=== PATIENT | male | born 1950 | race Caucasian/White ===

== ENCOUNTER 2018-01-15 10:21 | Outpatient (CLI) | payer MEDICARE ==
--- NOTE | 2018-01-15 11:45 | RAD ---
FRONTAL VIEW ABDOMEN KUB 2 VIEWS PROVIDED: Date: 01/15/18 INDICATION: Calculus of kidney, cystic kidney disease. FINDINGS: Stable punctate density is seen overlying the left lateral abdomen. There are punctate densities over lying the mid right renal collecting system. No suspicious calcification is seen overlying the pelvis . There are metallic clips at the left proximal thigh. Osseous degenerative change present. There is a round density, 2.5 cm in diameter, on the basis of radiographic views just lateral to the right L3 transverse process. This could relate to overlying bowel content, and does not demonstrate a typical appearance for urinary tract calculus. IMPRESSION: 1. Stable laterally located punctate calcification of the left abdomen. 2. Punctate densities overlying the mid right renal collecting system which may relate to urolithias is. POS: BLAINE
== END 2018-01-15 10:22 | disposition home or self-care (01) ==
LOC: RAD 10:21
PROVIDERS: ATTEND Urology
DX: N20.0 Calculus of kidney (principal); R93.5 Abnormal findings on diagnostic imaging of other abdominal regions, including retroperitoneum
CPT/HCPCS: 74018

== ENCOUNTER 2018-09-18 10:02 | Outpatient (CLI) | payer MEDICARE ==
--- NOTE | 2018-09-18 12:29 | RAD ---
KUB: INDICATIONS: History of renal calculus. COMPARISON: 01/15/2018 FINDINGS: There is a 4 mm punctate calcification overlying the expected region of the right mid kidney, likely present on prior examination. Overlying bowel gas slightly limits evaluation of the left renal shado w. No suspicious calcification is seen along the expected course of the renal collecting system. IMPRESSION: Stable right nephrolithiasis. No suspicious calcification along the course of the renal collecting s ystem. There are mild scattered vascular calcifications. POS: MADHU
== END 2018-09-18 10:03 | disposition home or self-care (01) ==
LOC: RAD 10:02
PROVIDERS: ATTEND Urology
DX: N20.0 Calculus of kidney (principal); I70.90 Unspecified atherosclerosis
CPT/HCPCS: 36415; 74018; 80048; 81001; 83036; 87086

== ENCOUNTER 2018-10-08 00:04 | Outpatient (CLI) | payer MEDICARE, OTHER ==
[2018-10-08 14:08] LABS: Hemoglobin 14.5 g/dL (14.0-18.0); Mean Corpuscular Hemoglobin 30.9 pg (27.0-31.0); Mean Corpuscular Volume 93.8 fL (78.0-98.0); Mean Platelet Volume 6.6 fL (7.4-10.4); Platelet Count 225 thou/uL (130-400); RBC Distribution Width 12.5 % (11.5-14.5); Red Blood Cell (RBC) Count 4.69 mill/uL (4.70-6.10); White Blood Cell (WBC) Count 6.9 thou/uL (4.8-10.8)
[2018-10-08 14:12] LABS: Bilirubin Small (Negative); Blood, Urine Negative (Negative); Clarity CLEAR (Clear); Glucose, Urine (Dipstick) 250 mg/dL (Negative); Leukocyte Trace (Negative); Nitrite Negative (Negative); Protein, Urine (Dipstick) Trace mg/dL (Neg-Trace); Urobilinogen 0.2 mg/dL (0.2-1.0); pH, Urine 5.5 (5.0-9.0)
[2018-10-08 14:13] LABS: Bacteria/HPF None Seen HPF (None Seen); Pathc Cast-AUWi Flag 0.95 (0-2.49); Squamous Epithelial 0-3 HPF (0-3)
[2018-10-08 14:16] LABS: INR-International Normal Ratio 1.1; PTT 25.8 SEC (22.9-36.1)
[2018-10-08 14:21] LABS: Anion Gap 14 mmol/L (10-20); BUN (Urea Nitrogen) 18 mg/dL (8.4-25.7); Calc. Creatinine Clearance 0 mL/min (70-130); Calcium 9.6 mg/dL (7.8-10.44); Carbon Dioxide 27 mmol/L (23-31); Chloride 106 mmol/L (98-107); Estimated GFR-MDRD Greater than 90; Glucose 134 mg/dL (80-115); Potassium 3.9 mmol/L (3.5-5.1); Sodium 143 mmol/L (136-145)
[2018-10-08 14:44] LABS: RBC/HPF 0-3 HPF (0-3)
[2018-10-08 14:45] LABS: Crystals/HPF 1+ CA OXALATE HPF (Negative); Hyaline Casts/LPF 0-3 HYALINE CAST LPF (0-3 Hyaline)
--- NOTE | 2018-10-08 17:10 | EKG ---
Test Reason : Blood Pressure : / mmHG Vent. Rate : 084 BPM Atrial Rate : 084 BPM P-R Int : 204 ms QRS Dur : 082 ms QT Int : 360 ms P-R-T Axes : 032 060 085 degrees QTc Int : 425 ms Normal sinus rhythm Cannot rule out Anterior infarct , age undetermined Abnormal ECG When compared with ECG of 18-DEC-2016 10:48, No significant change was found Confirmed by Luis LUNA ([id number]) on 10/08/2018 5:10:01 PM Referred By: DESI Confirmed By:Luis LUNA
== END 2018-10-08 00:05 | disposition home or self-care (01) ==
LOC: LABBT 00:04
PROVIDERS: ATTEND Urology
DX: Z01.818 Encounter for other preprocedural examination (principal); Z12.5 Encounter for screening for malignant neoplasm of prostate; N40.1 Benign prostatic hyperplasia with lower urinary tract symptoms; N39.0 Urinary tract infection, site not specified; R35.0 Frequency of micturition; N20.0 Calculus of kidney; N39.41 Urge incontinence; E11.9 Type 2 diabetes mellitus without complications; R39.15 Urgency of urination; R31.29 Other microscopic hematuria; R81 Glycosuria; Q61.9 Cystic kidney disease, unspecified
CPT/HCPCS: 80048; 81001; 85027; 85610; 85730; 87086; 93005; 93010

== ENCOUNTER 2018-10-22 05:26 | Day surgery (SDC) | payer MEDICARE, OTHER ==
[2018-10-08 13:17] VITALS: BMI 47.9
[2018-10-22] MEDS ORDERED: Iothalamate Meglumine 60% 50 ML VIAL FS ONE (06:45)
[2018-10-22] MEDS ORDERED: Fentanyl 100 MCG/2 ML VIAL ONE ×2 (06:53→08:58)
[2018-10-22] MEDS ORDERED: cefTRIAXone\\ROCEPHIN 2 GM VIAL ONE (06:54)
[2018-10-22] MEDS ORDERED: Sodium Chloride 0.9% 100 ML ONE (06:54)
[2018-10-22] MEDS ORDERED: Hyoscyamine Sulfate SL 0.125 mg Tablet ONE ×2 (09:03→09:04)
[2018-10-22] MEDS ORDERED: Phenazopyridine HCl 97.5 MG TABLET ONE (10:02)
--- NOTE | 2018-10-22 14:49 | OP ---
DATE OF PROCEDURE: 10/22/2018 PREOPERATIVE DIAGNOSES: 1. A 68-year-old male with history of BPH. 2. History of recurrent urinary tract infection. 3. History of nonspecific left periureteral bladder lesion, 5 mm, suspicion low. POSTOPERATIVE DIAGNOSES: 1. A 68-year-old male with history of BPH. 2. History of recurrent urinary tract infection. 3. History of nonspecific left periureteral bladder lesion, 5 mm, suspicion low. PROCEDURES PERFORMED: Cystoscopy, bladder biopsy, fulguration of biopsy site, and UroLift prosthetic urethral lift implant x6. ANESTHESIA: General. COMPLICATIONS: None apparent. DISPOSITION: To recovery room in stable condition. SPECIMEN: Left bladder lesion, periureteral, nonspecific, suspicion low. INDICATIONS FOR PROCEDURE AND HISTORY: Mr. Correa is a 68-year-old male with history of BPH, with obstructive urinary symptoms on Flomax, recurrent UTI. He desired to proceed with BPH surgery. We discussed various treatment options and desired to proceed with minimally invasive approach of UroLift. Risks and complications of the procedure were reviewed with him in detail including, but not limited to, bleeding, pain, infection, injury to adjacent organs, possible migration, encrustation of implant, chronic pain, stricture, clot retention. All questions were answered to his satisfaction and desired to proceed. DESCRIPTION OF PROCEDURE: After an informed consent was signed, the patient was taken to the operating room and placed in a dorsal lithotomy position with the genital area prepped and draped in the usual surgical sterile fashion. Bilateral [place] hose, SCDs and broad-spectrum antibiotics were provided. A 21-Prydeinig cystoscope was utilized for cystoscopy, which demonstrated normal anterior urethra. Prostatic urethra again demonstrated bilobar hyperplasia, obstructing in nature. Bladder was entered with the UOs identified approximately 5-6 mm away from the bladder neck with no evidence of intravesical median lobe. There was a left periureteral lesion about 5 mm, appeared to have some calcific density adherent. It is not suspicious for cancer. Cytology negative. I did biopsy with an endoscopic biopsy intact and cauterized the bed. The UOs were kept out of harm's way. At this time, we then placed a 20-Prydeinig cystoscope with an obturator bridge with UroLift delivery device. The first treatment site was in the patient's left side approximately 1.5-2 cm distal to the bladder neck. The tip of the delivery device was then angled laterally approximately 20 degrees in this position to compress the lateral lobe by deploying the needle containing the implant to the prostate. The needle was retracted along the end of the implant to be delivered to the capsular surface of the prostate. The implant was then tensioned to ensure capsular seeding and removal of slack monofilament. The device was then angled back towards the midline and slowly advanced proximally until cystoscopic verification of monofilament being centered in the delivery bay. The urethra in piece was then affixed to the monofilament, thereby tailoring the size of the implant. Excess of filament was then severed. The delivery device was then readvanced into the bladder. This was repeated on the bilateral obstructing lobes with a total of 6 implants. At the end of the procedure, visualization from the verumontanum demonstrated resolution of obstructing lateral lobes. An 18-Prydeinig 2-way Dove catheter was inserted per urethra without difficulty. 10 mL insufflated and attached to leg bag. The patient will follow up with me tomorrow for a voiding trial. He is discharged with Omnicef for course of 7 days, Colace p.r.n. He is advised to hold his aspirin and ibuprofen products. Job ID: [id number] [facility]
[2018-10-22] MEDS ORDERED: Lidocaine 1% PF 5 ML VIAL ONE (15:48)
[2018-10-22] MEDS ORDERED: Rocuronium Bromide 10 MG/ML (10ML VIAL) ONE (15:48)
[2018-10-22] MEDS ORDERED: Glycopyrrolate 0.2 MG/ML 5 ML SYRINGE ONE (15:48)
[2018-10-22] MEDS ORDERED: Succinylcholine Chloride 20 MG/ML 10 ml SYRINGE FS ONE (15:48)
[2018-10-22] MEDS ORDERED: PROPOFOL 200 MG/20 ML VIAL ONE (15:48)
== END 2018-10-22 13:30 | disposition home or self-care (01) ==
LOC: SDC 05:26
PROVIDERS: ATTEND Urology
PROC: 0T7D8DZ Dilation of Urethra with Intraluminal Device, Via Natural or Artificial Opening Endoscopic (ICD-10-PCS; principal; 2018-10-22)
PROC: 0TBB8ZX Excision of Bladder, Via Natural or Artificial Opening Endoscopic, Diagnostic (ICD-10-PCS; 2018-10-22)
DX: N40.1 Benign prostatic hyperplasia with lower urinary tract symptoms (principal); N13.8 Other obstructive and reflux uropathy; N39.41 Urge incontinence; N30.80 Other cystitis without hematuria; E11.9 Type 2 diabetes mellitus without complications; E78.5 Hyperlipidemia, unspecified; K21.9 Gastro-esophageal reflux disease without esophagitis; F10.11 Alcohol abuse, in remission; Z87.440 Personal history of urinary (tract) infections; Z86.73 Personal history of transient ischemic attack (TIA), and cerebral infarction without residual deficits; Z79.82 Long term (current) use of aspirin; Z79.84 Long term (current) use of oral hypoglycemic drugs; Z79.899 Other long term (current) drug therapy; Z88.1 Allergy status to other antibiotic agents; Z88.8 Allergy status to other drugs, medicaments and biological substances; Z95.5 Presence of coronary angioplasty implant and graft; Z98.890 Other specified postprocedural states
CPT/HCPCS: 52204; 88305; C1758; C1769; C9740; J0696; J2001; J2704; J3010; J3490; Q9961

== ENCOUNTER 2020-01-12 06:41 | Outpatient (CLI) | payer MEDICARE ==
--- NOTE | 2020-01-12 08:12 | ULT ---
ULTRASOUND RETROPERITONEUM COMPLETE: (RENAL) DATE: 01/12/2020. HISTORY: A 69-year-old male with cystic kidney disease, unspecified, 261.9, and the calculus of kidney N20.0 . FINDINGS: The right kidney measures 12 x 6.5 x 7 cm. The left kidney measures 14 x 6 x 9.5 cm. Both kidneys h ave normal cortical thickness and normal cortical echogenicity. There is no hydronephrosis. Cursory images of the urinary bladder demonstrate no gross abnormality. No moderate-sized or large solid or cystic renal lesion is identified. Bilateral ureteral jets are demonstrated in the bladder. Prevoi d urinary bladder volume is 185 mL. IMPRESSION: Normal. [][id number] POS: BLAINE
--- NOTE | 2020-01-12 08:19 | RAD ---
Exam: Abdomen one view COMPARISON: 09/18/2018 HISTORY: Cystic kidney disease. Renal calculi LUNGS: Brachytherapy seeds are noted in the pelvis. No osseous abnormality Nonspecific bowel gas pattern Small calcification in the left upper quadrant, unchanged. Splenic granuloma is favored given the loc ation. No definite calculi projecting over either renal silhouette or along the expected course of either ureter IMPRESSION: As above
== END 2020-01-12 06:42 | disposition home or self-care (01) ==
LOC: BICULT 06:41
PROVIDERS: ATTEND Urology
DX: N20.0 Calculus of kidney (principal); Q61.9 Cystic kidney disease, unspecified
CPT/HCPCS: 74018; 76770

== ENCOUNTER 2020-08-22 09:15 | Outpatient (CLI) | payer MEDICARE, OTHER ==
--- NOTE | 2020-08-22 09:51 | CT ---
CT Stone Protocol 08/22/2020 9:20 AM HISTORY: Right flank pain and tightness. History of renal stones COMPARISON: 06/02/2015 Technique: Multiple contiguous axial CT images are obtained through the abdomen and pelvis without IV contrast. Coronal reformats are provided. FINDINGS: This examination is limited for the evaluation of solid organs and vascular structures due to the lac k of intravenous contrast. Lower Chest: Linear scarring and/or atelectasis is present at the posterior right lung base. Vascular calcifications are seen in the limited visualized coronary arteries Liver: There is a large 8.2 cm hypodense cystic lesion in the dome of the liver also seen on prior ex am. This cystic lesion previously measured 6 cm and now measures 8.2 cm and does demonstrate fluid attenuation likely representing interval enlargement of a hepatic cyst. A smaller 2 cm hypodense lesi on is seen in the medial aspect right hepatic lobe unchanged from prior study and also statistically likely representing a cyst. Gallbladder: Not visualized likely due to prior cholecystectomy. Pancreas: Grossly normal nonenhanced CT appearance. Spleen: Grossly normal nonenhanced CT appearance. Adrenals: Grossly normal nonenhanced CT appearance. Kidneys and ureters: Multiple nonobstructing bilateral renal calculi are visualized. Largest calculus midportion left kidney measures 6 mm with largest calculus midportion right kidney measuring 5 mm. No ureteral calculus is seen, and there is no hydronephrosis. Small subcentimeter hypodense lesion is seen in the inferior pole right kidney also seen on prior exam and likely represents a cyst. Urinary bladder: Incompletely distended. Reproductive Organs: Multiple prostate calcifications visualized. Lymph Nodes: No enlarged lymph nodes. Bowel: Evidence of colonic diverticulosis. Small hiatal hernia is present. Appendix: The appendix is normal in caliber. Peritoneum: No free fluid, free air, or fluid collection. Retroperitoneum: within normal limits. Vessels: Vascular calcifications in the abdominal aorta and iliac arteries. Abdominal Wall: within normal limits. Bones: Degenerative changes present in the spine. There is been progression in degree of degenerative changes at the L4-5 level with vacuum phenomenon and endplate degenerative changes No suspicious lytic or sclerotic osseous lesions are identified. IMPRESSION: 1. Nonobstructing bilateral renal calculi with interval increase in number of renal calculi compared to prior exam. 2. No ureteral calculus is seen, and there is no hydronephrosis. 3. Hepatic cysts with enlargement of the hepatic dome cyst. 4. Hypodense lesion inferior pole right kidney difficult to further characterize but also present on prior exam and statistically likely represents a cyst. 5. Colonic diverticulosis. 6. There is a small hiatal hernia.
== END 2020-08-22 09:16 | disposition home or self-care (01) ==
LOC: CT 09:15
PROVIDERS: ATTEND Urology
DX: N20.0 Calculus of kidney (principal); K76.89 Other specified diseases of liver; N28.9 Disorder of kidney and ureter, unspecified; K57.30 Diverticulosis of large intestine without perforation or abscess without bleeding; K44.9 Diaphragmatic hernia without obstruction or gangrene
CPT/HCPCS: 74176

== ENCOUNTER 2020-12-30 12:34 | Outpatient (CLI) | payer MEDICARE | END 2020-12-30 12:35 | disposition home or self-care (01) | LOC: BICRAD 12:34 | PROVIDERS: ATTEND Urology | DX: N20.0 Calculus of kidney (principal); R19.8 Other specified symptoms and signs involving the digestive system and abdomen | CPT/HCPCS: 74018 ==

== ENCOUNTER 2021-02-20 12:12 | Outpatient (CLI) | payer MEDICARE | END 2021-02-20 12:13 | disposition home or self-care (01) | LOC: BICULT 12:12 | PROVIDERS: ATTEND Psychiatry & Neurology Neurology | DX: I63.39 Cerebral infarction due to thrombosis of other cerebral artery (principal) | CPT/HCPCS: 93880 ==

== ENCOUNTER 2021-04-13 15:10 | Outpatient (CLI) | payer MEDICARE | END 2021-04-13 15:11 | disposition home or self-care (01) | LOC: BICRAD 15:10 | PROVIDERS: ATTEND Urology | DX: Q61.9 Cystic kidney disease, unspecified (principal); N20.0 Calculus of kidney | CPT/HCPCS: 74018 ==

== ENCOUNTER 2022-01-17 13:02 | Outpatient (CLI) | payer MEDICARE ==
[2022-01-17] MEDS ORDERED: Iopamidol 370 76% 100 ML VIAL ONE (14:19)
== END 2022-01-17 13:03 | disposition home or self-care (01) ==
LOC: BICCT 13:02
PROVIDERS: ATTEND Internal Medicine Gastroenterology
DX: K76.89 Other specified diseases of liver (principal); R19.4 Change in bowel habit; N20.0 Calculus of kidney; K57.30 Diverticulosis of large intestine without perforation or abscess without bleeding; Z80.0 Family history of malignant neoplasm of digestive organs
CPT/HCPCS: 74160; 82565; Q9967

== ENCOUNTER 2022-03-13 07:45 | Emergency (ER) | payer MEDICARE ==
[2022-03-13 08:37] LABS: Bacteria/HPF None Seen HPF (None Seen); Bilirubin Negative (Negative); Blood, Urine 2+ (Negative); Clarity Clear (Clear); Glucose, Urine (Dipstick) >=1000 mg/dL (Negative); Ketone, Urine Trace mg/dL (Negative); Leukocyte Negative Leu/uL (Negative); Nitrite Negative (Negative); Protein, Urine (Dipstick) 10 mg/dL (Neg-Trace); Specific Gravity, Urine 1.026 (1.002-1.036); Squamous Epithelial 0-3 HPF (0-3); Urobilinogen Normal mg/dL (Less than 2); pH, Urine 5.5 (5.0-9.0)
[2022-03-13 08:45] LABS: #Lymphocytes 1.3 thou/uL (1.20-3.40); #Monocytes 0.6 thou/uL (0.11-0.59); %Basophils 0.1 % (0.0-1.0); %Eosinophils 0.4 % (0.0-10.0); %Lymphocytes 14.2 % (21.0-51.0); %Monocytes 6.4 % (0.0-10.0); %Neutrophils 78.9 % (42.0-75.0); Mean Corpuscular HGB CONC 33.3 g/dL (32.0-36.0); Mean Corpuscular Hemoglobin 31.8 pg (27.0-31.0); Mean Corpuscular Volume 95.4 fL (78.0-98.0); Mean Platelet Volume 6.6 fL (7.4-10.4); Platelet Count 201 thou/uL (130-400); RBC Distribution Width 12.2 % (11.5-14.5); Red Blood Cell (RBC) Count 4.72 mill/uL (4.70-6.10); White Blood Cell (WBC) Count 8.8 thou/uL (4.8-10.8)
[2022-03-13 09:07] LABS: ALT (SGPT) 24 U/L (8-55); AST (SGOT) 17 U/L (5-34); Alkaline Phosphatase 69 U/L (40-110); Anion Gap 17 mmol/L (10-20); BUN (Urea Nitrogen) 21 mg/dL (8.4-25.7); Bilirubin, Total 0.7 mg/dL (0.2-1.2); Calc. Creatinine Clearance 0 mL/min (70-130); Calcium 9.2 mg/dL (7.8-10.44); Carbon Dioxide 25 mmol/L (23-31); Chloride 98 mmol/L (98-107); Estimated GFR 73; Globulin 3.1 g/dL (2.4-3.5); Glucose 236 mg/dL (83-110); Potassium 3.8 mmol/L (3.5-5.1); Protein, Total 7.1 g/dL (5.8-8.1); Sodium 136 mmol/L (136-145)
[2022-03-13] MEDS ORDERED: Ketorolac Tromethamine 30 MG/ML VIAL ONE (10:21)
== END 2022-03-13 11:46 | disposition home or self-care (01) ==
LOC: ERS 07:45
DX: N13.2 Hydronephrosis with renal and ureteral calculous obstruction (principal); I10 Essential (primary) hypertension; E11.9 Type 2 diabetes mellitus without complications; Z20.822 Contact with and (suspected) exposure to COVID-19; N40.1 Benign prostatic hyperplasia with lower urinary tract symptoms; Z12.5 Encounter for screening for malignant neoplasm of prostate; Q61.9 Cystic kidney disease, unspecified; R39.15 Urgency of urination; R31.21 Asymptomatic microscopic hematuria; R35.0 Frequency of micturition; R82.71 Bacteriuria; R81 Glycosuria; K76.89 Other specified diseases of liver; R82.998 Other abnormal findings in urine; R97.20 Elevated prostate specific antigen [PSA]; N48.83 Acquired buried penis; N52.9 Male erectile dysfunction, unspecified
CPT/HCPCS: 74176; 80053; 85025; 85610; 85730; 87086; 87811; 93005; 96374; 99284; G0463; 36415; 81003; 81015; 99215; J1885

== ENCOUNTER 2022-03-13 13:59 | Outpatient (CLI) | payer MEDICARE ==
[2022-03-13 15:23] LABS: PTT 25.4 sec (22.0-33.0); Prothrombin Time 10.7 sec (9.5-12.1)
== END 2022-03-13 14:00 | disposition home or self-care (01) ==
LOC: LABBT 13:59
PROVIDERS: ATTEND Urology
DX: Z01.818 Encounter for other preprocedural examination (principal); Z20.822 Contact with and (suspected) exposure to COVID-19
CPT/HCPCS: 85610; 85730; 87811; 93005; 93010

== ENCOUNTER 2022-03-14 10:55 | Day surgery (SDC) | payer MEDICARE ==
[2022-03-13 14:03] VITALS: BMI 46.3
[2022-03-14] MEDS ORDERED: Sodium Chloride 0.9% 100 ML ONE (11:32)
[2022-03-14] MEDS ORDERED: Lidocaine 1% MPF 2 ML VIAL ONE ×2 (11:32→14:45)
[2022-03-14] MEDS ORDERED: cefTRIAXone\\ROCEPHIN 2 GM VIAL ONE (11:32)
[2022-03-14] MEDS ORDERED: Iopamidol 15 ML ONE (14:07)
[2022-03-14] MEDS ORDERED: Midazolam HCl 2 mg/2 ml Vial ONE (14:16)
[2022-03-14] MEDS ORDERED: SUGAMMADEX SODIUM 200 MG/2 ML VIAL ONE ×2 (14:17→15:28)
[2022-03-14] MEDS ORDERED: fentaNYL Citrate/PF 100 MCG/2 ML SYRINGE ONE (14:17)
[2022-03-14] MEDS ORDERED: PROPOFOL 200 MG/20 ML VIAL ONE (14:45)
[2022-03-14] MEDS ORDERED: Rocuronium Bromide 10 MG/ML (10ML VIAL) ONE (14:45)
[2022-03-14] MEDS ORDERED: Phenylephrine 10 MG/ML VIAL ONE (14:45)
[2022-03-14] MEDS ORDERED: Succinylcholine 200 MG/10 ml SYRINGE FS ONE (14:45)
[2022-03-14] MEDS ORDERED: Phenazopyridine HCl 100 MG TAB ONE (15:57)
== END 2022-03-14 17:10 | disposition home or self-care (01) ==
LOC: SDC 10:55
PROVIDERS: ATTEND Urology
PROC: 0TC48ZZ Extirpation of Matter from Left Kidney Pelvis, Via Natural or Artificial Opening Endoscopic (ICD-10-PCS; principal; 2022-03-14)
PROC: 0TC78ZZ Extirpation of Matter from Left Ureter, Via Natural or Artificial Opening Endoscopic (ICD-10-PCS; 2022-03-14)
PROC: 0T778DZ Dilation of Left Ureter with Intraluminal Device, Via Natural or Artificial Opening Endoscopic (ICD-10-PCS; 2022-03-14)
DX: N20.2 Calculus of kidney with calculus of ureter (principal); N35.912 Unspecified bulbous urethral stricture, male; N40.1 Benign prostatic hyperplasia with lower urinary tract symptoms; N39.41 Urge incontinence; R35.0 Frequency of micturition; N52.9 Male erectile dysfunction, unspecified; E11.9 Type 2 diabetes mellitus without complications; N48.83 Acquired buried penis; I10 Essential (primary) hypertension; E78.5 Hyperlipidemia, unspecified; F10.11 Alcohol abuse, in remission; E66.01 Morbid (severe) obesity due to excess calories; Z68.42 Body mass index [BMI] 45.0-49.9, adult; Z86.73 Personal history of transient ischemic attack (TIA), and cerebral infarction without residual deficits; Z79.82 Long term (current) use of aspirin; Z79.84 Long term (current) use of oral hypoglycemic drugs; Z79.899 Other long term (current) drug therapy; Z88.1 Allergy status to other antibiotic agents; Z88.8 Allergy status to other drugs, medicaments and biological substances
CPT/HCPCS: 74420; C1769; C2617; J0696; J2250; J2370; J2704; J3490; Q9967

== ENCOUNTER 2022-04-30 09:37 | Outpatient (CLI) | payer MEDICARE | END 2022-04-30 09:38 | disposition home or self-care (01) | LOC: BICULT 09:37 | PROVIDERS: ATTEND Urology | DX: N20.0 Calculus of kidney (principal) | CPT/HCPCS: 74018; 76770 ==

== ENCOUNTER 2023-11-08 10:25 | Outpatient (CLI) | payer MEDICARE | END 2023-11-08 10:26 | disposition home or self-care (01) | LOC: RAD 10:25 | PROVIDERS: ATTEND Urology | DX: N20.0 Calculus of kidney (principal); Q61.9 Cystic kidney disease, unspecified; N40.1 Benign prostatic hyperplasia with lower urinary tract symptoms | CPT/HCPCS: 74018 ==